=== PATIENT | male | born 1960 | race Caucasian/White ===

== ENCOUNTER 2017-03-28 17:54 | Emergency (ER) | payer SELFPAY ==
[~2017-03-28 17:54] MED LIST: COLACE100 MG PO; FLO4 PO; LEVAQUIN750 MG PO; MOTRIN800 MG PO; NAPROXEN500 MG PO; NOR10T PO; NORCO1 TA2; NORCO1 TA2 PO; OMEPRAZOLE DR20 M1 PO; PRILOSEC20 MG PO
[2017-03-28 19:21] VITALS: BP 130/87
== END 2017-03-28 19:22 | disposition home or self-care (01) ==
LOC: ED 17:54
DX: M54.5 Low back pain (principal); R10.2 Pelvic and perineal pain; I10 Essential (primary) hypertension

== ENCOUNTER 2017-04-06 18:58 | Inpatient (IN) | payer OTHER ==
[~2017-04-06] VITALS: Ht 167.6 cm; Wt 99.0 kg
[2017-04-06 19:43] LABS: BASOPHIL % 0.5 % (0-2); PLATELET COUNT 178 x10^3mcL (130-400); RED CELL DISTRIBUTION WIDTH 12.9 % (11.5-14.5)
[2017-04-06 19:48] LABS: CALCIUM 8.1 mg/dL (8.5-10.1); CARBON DIOXIDE 27.9 mmol/L (21-32); CHLORIDE SERUM 105 mmol/L (98-107); CREATININE SERUM 1.1 mg/dL (0.7-1.3); GFR1 > 60 mL/min; GLUCOSE SERUM 135 mg/dL (74-106); POTASSIUM SERUM 3.8 mmol/L (3.5-5.1); SODIUM SERUM 141 mmol/L (136-145)
[2017-04-06 19:53] LABS: ALKALINE PHOSPHATASE 97 U/L (46-116); ALT/SGPT 43 U/L (16-63); AST/SGOT 23 U/L (15-37); BILIRUBIN TOTAL 0.72 mg/dL (0.20-1.00); MAGNESIUM 1.8 mg/dL (1.8-2.4); TOTAL PROTEIN, SERUM 6.8 g/dL (6.4-8.2)
[2017-04-06 19:56] LABS: ALBUMIN 3.2 g/dL (3.4-5.0)
[2017-04-06 21:15] LABS: PHOSPHOROUS 3.2 mg/dL (2.5-4.9)
[2017-04-06 21:22] LABS: T3 TOTAL 1.15 ng/mL
[2017-04-06 21:24] LABS: FREE T4 0.91 ng/dL (0.76-1.46); T4(THYROXINE) 5.7 ug/dL (4.7-13.3)
[2017-04-07 02:03] VITALS: BP 108/68
[2017-04-07 05:14] LABS: CHLORIDE SERUM 107 mmol/L (98-107); GFR1 > 60 mL/min; GLUCOSE SERUM 116 mg/dL (74-106); MAGNESIUM 1.8 mg/dL (1.8-2.4); PHOSPHOROUS 3.1 mg/dL (2.5-4.9); POTASSIUM SERUM 3.9 mmol/L (3.5-5.1); SODIUM SERUM 143 mmol/L (136-145)
[2017-04-07 06:01] VITALS: BP 124/81
[2017-04-07 08:29] VITALS: Ht 167.6 cm; Wt 99.0 kg
[2017-04-07 09:42] VITALS: BP 137/87
[2017-04-07 15:54] LABS: microscopic required? NO
[2017-04-07 16:03] LABS: urine erythrocyte NEGATIVE (NEGATIVE)
[2017-04-07 16:29] LABS: AMPHETAMINE QUAL UR NONE DETECTED (NEG <=1000)
[2017-04-07 17:57] VITALS: BP 180/100
[2017-04-07 20:19] VITALS: BP 164/108
[2017-04-07 22:27] VITALS: BP 118/68
[2017-04-08 06:12] VITALS: BP 142/95
[2017-04-08 07:50] VITALS: BP 142/86
[2017-04-08] MEDS ORDERED: METHOCARBAMOL500 MG PO (08:36)
[2017-04-08] MEDS ORDERED: NOR10T PO (08:37)
[2017-04-08] MEDS ORDERED: THI100 PO (08:38)
[2017-04-08] MEDS ORDERED: ATI1 PO (08:38)
[2017-04-08] MEDS ORDERED: FOL1 PO (08:38)
[2017-04-08] MEDS ORDERED: THERA TABS1 TAB PO (08:39)
[2017-04-08 14:05] VITALS: BP 156/88
[2017-04-08] MEDS ORDERED: SEROQUEL100 MG PO (16:24)
[2017-04-08 18:30] VITALS: BP 140/77
[2017-04-08 20:48] VITALS: BP 139/85
[2017-04-09 05:27] VITALS: BP 125/78
[2017-04-09 09:57] VITALS: BP 136/83
== END 2017-04-09 10:20 | disposition left against medical advice (07) | DRG 206 ==
LOC: ED 18:58 → DU 04-07 00:05
PROVIDERS: Emergency Medicine; ADMIT Family Medicine
DX: M94.0 Chondrocostal junction syndrome [Tietze] (principal); E44.0 Moderate protein-calorie malnutrition; I10 Essential (primary) hypertension; F41.9 Anxiety disorder, unspecified; F32.9 Major depressive disorder, single episode, unspecified; R73.03 Prediabetes; N40.0 Benign prostatic hyperplasia without lower urinary tract symptoms; E78.5 Hyperlipidemia, unspecified; E78.2 Mixed hyperlipidemia; F10.10 Alcohol abuse, uncomplicated; Y90.9 Presence of alcohol in blood, level not specified; Z68.35 Body mass index [BMI] 35.0-35.9, adult; Z84.1 Family history of disorders of kidney and ureter; Z95.810 Presence of automatic (implantable) cardiac defibrillator; Z83.3 Family history of diabetes mellitus; Z87.891 Personal history of nicotine dependence; M54.9 Dorsalgia, unspecified; G89.29 Other chronic pain; E66.9 Obesity, unspecified
CPT/HCPCS: 82962; 83880; 84439; G0480; J1885; J2060; J2270; J2405; J7030; J8597; Q0092

== ENCOUNTER 2017-08-29 14:24 | Emergency (ER) | payer OTHER ==
[~2017-08-29] VITALS: Ht 172.7 cm; Wt 103.9 kg
[~2017-08-29 14:24] MED LIST changes: +ATI1 PO; +FOL1 PO; +METHOCARBAMOL500 MG PO; +SEROQUEL100 MG PO; +THERA TABS1 TAB PO; +THI100 PO
[2017-08-29 14:29] VITALS: BP 140/72
== END 2017-08-29 15:59 | disposition home or self-care (01) ==
LOC: ED 14:24
DX: R50.9 Fever, unspecified (principal); M79.1 Myalgia; I10 Essential (primary) hypertension; Z86.79 Personal history of other diseases of the circulatory system; Z95.0 Presence of cardiac pacemaker
CPT/HCPCS: J1885; Q0162

== ENCOUNTER 2017-09-21 08:15 | Inpatient (IN) | payer OTHER ==
[~2017-09-21] VITALS: Ht 167.6 cm; Wt 100.8 kg
--- NOTE | 2017-09-21 08:37 | NUR ---
AWAKE ALERT ORIENTED, STATED HAS BEEN HAVING ABDOMINAL PAIN WITH NAUSEA AND VOMITING SINCE ONE WEEK,
--- NOTE | 2017-09-21 08:43 | NUR ---
IV ESTABLISHED, MEDICATED ORDERD
[2017-09-21 08:54] LABS: BASOPHIL % 0.5 % (0-2); PLATELET COUNT 246 x10^3mcL (130-400); RED CELL DISTRIBUTION WIDTH 12.6 % (11.5-14.5)
--- NOTE | 2017-09-21 09:08 | NUR ---
BACK FROM CT AND XRAY CHEST,FEELS BETTER
[2017-09-21 09:27] LABS: CALCIUM 10.1 mg/dL (8.5-10.1); CARBON DIOXIDE 28.1 mmol/L (21-32); CHLORIDE SERUM 103 mmol/L (98-107); CREATININE SERUM 1.2 mg/dL (0.7-1.3); GFR1 > 60 mL/min; GLUCOSE SERUM 115 mg/dL (74-106); POTASSIUM SERUM 3.4 mmol/L (3.5-5.1); SODIUM SERUM 140 mmol/L (136-145)
[2017-09-21 09:32] LABS: ALKALINE PHOSPHATASE 169 U/L (46-116); ALT/SGPT 96 U/L (16-63); AST/SGOT 66 U/L (15-37); BILIRUBIN TOTAL 0.6 mg/dL (0.20-1.00); LIPASE 118 IU/L (73-393); TOTAL PROTEIN, SERUM 7.6 g/dL (6.4-8.2)
[2017-09-21 09:47] LABS: ALBUMIN 3.1 g/dL (3.4-5.0)
[2017-09-21 10:44] VITALS: BP 139/87
[2017-09-21 11:14] VITALS: BP 139/87
--- NOTE | 2017-09-21 11:31 | NUR ---
RECIEVED PT FROM ED. PT IS AWAKE, ALERT, AND ORIENTED. HAS NO COMPLAINT OF SOB, OR DIZZINESS. PT CURRENTLY HAS NO COMPLAINT OF ABDOMINAL PAIN. ACTIVE BOWEL SOUNDS NOTED. NON DISTENDED ABDOMEN NOTED. CLEAR BHARATI LUNG FIELD, SYMMETRICAL CHEST EXPANSION AND UNLABORED. SKIN INTACT. SIDE RAILS UP, CALL LIGHT WITHIN REACH, WILL CONTINUE TO MONITOR
[2017-09-21 12:17] LABS: MAGNESIUM 1.7 mg/dL (1.8-2.4); PHOSPHOROUS 4.3 mg/dL (2.5-4.9)
[2017-09-21 12:22] LABS: CHOLESTEROL/HDL RATIO 8.1
[2017-09-21 12:28] LABS: FREE T4 0.94 ng/dL (0.76-1.46); FREE THYROXINE INDEX 2.9 ug/dL (1.4-4.5); T4(THYROXINE) 8.7 ug/dL (4.7-13.3)
--- NOTE | 2017-09-21 13:00 | NUR ---
PT ABLE TO TOLERATE LUNCH
[2017-09-21 13:24] LABS: T3 TOTAL 1.24 ng/mL
--- NOTE | 2017-09-21 14:00 | NUR ---
PT ON BED, AWAKE, ALERT, AND ORIENTED. IV ANTIBIOTIC HANGED AND INFUSING WELL NO REACTION NOTED
[2017-09-21 14:05] VITALS: BP 136/87
[2017-09-21 14:06] VITALS: BP 107/57
--- NOTE | 2017-09-21 17:25 | NUR ---
PT ON BED, AWAKE, ALERT, AND ORIENTED. HAS NO COMPLAINT OF PAIN, SOB, OR DIZZINESS. RESPONDS WELL TO QUESTION AND ANSWER. SIDE RAILS UP, CALL LIGHT WITHIN REACH, WILL CONTINUE TO MONITOR
[2017-09-21 17:29] VITALS: BP 117/74
--- NOTE | 2017-09-21 19:46 | NUR ---
PT RECEIVED FROM AM NURSE, IN BED, A/O X4, VERBALLY RESPONSIVE. LUNGS CLEAR, EVEN, UNLABORED. ON TELE 44, NSR WITH HR IN 60S. NO C/O CHEST PAIN. BOWEL SOUNDS ACTIVE IN ALL QUADRANTS. IV TO LAC, NS AT 100 ML/HR. NO LEAKING/INFILTRATION NOTED. MADE PT COMFORTABLE, CALL LIGHT IN REACH, BED IN LOWEST POSITION, WILL CONTINUE TO MONITOR.
[2017-09-21 21:50] VITALS: BP 106/61
--- NOTE | 2017-09-21 22:01 | NUR ---
POTASSIUM 3.4, DR. LOPEZ MADE AWARE
--- NOTE | 2017-09-22 03:27 | NUR ---
PT ASLEEP IN BED, EASILY AROUSABLE, A/O X4. NO SIGNS OF ACUTE DISTRESS. IV TO LFA INTACT, PATENT, NO LEAKING. WILL CONTINUE TO MONITOR.
--- NOTE | 2017-09-22 05:19 | NUR ---
PT ASLEEP IN BED, IN NO ACUTE DISTRESS AT THIS TIME. CALL LIGHT IN REACH, WILL CONTINUE TO MONITOR.
[2017-09-22 06:07] LABS: microscopic required? NO
[2017-09-22 06:26] LABS: urine erythrocyte NEGATIVE (NEGATIVE)
[2017-09-22 06:33] LABS: AMPHETAMINE QUAL UR NONE DETECTED (NEG <=1000)
[2017-09-22 06:50] VITALS: BP 103/59
[2017-09-22 07:59] LABS: BASOPHIL % 0.6 % (0-2); PLATELET COUNT 210 x10^3mcL (130-400); RED CELL DISTRIBUTION WIDTH 12.8 % (11.5-14.5)
[2017-09-22 08:22] LABS: CALCIUM 9.3 mg/dL (8.5-10.1); CARBON DIOXIDE 27.3 mmol/L (21-32); CHLORIDE SERUM 104 mmol/L (98-107); GFR1 > 60 mL/min; GLUCOSE SERUM 103 mg/dL (74-106); MAGNESIUM 1.8 mg/dL (1.8-2.4); PHOSPHOROUS 4.3 mg/dL (2.5-4.9); POTASSIUM SERUM 3.6 mmol/L (3.5-5.1); SODIUM SERUM 141 mmol/L (136-145)
--- NOTE | 2017-09-22 09:00 | NUR ---
RECIEVED PT FROM NOC. PT IS AWAKE, ALERT, AND ORIENTED. HAS NO COMPLAINT OF SOB, OR DIZZINESS. PT CURRENTLY HAS NO COMPLAINT OF ABDOMINAL PAIN. ACTIVE BOWEL SOUNDS NOTED. NON DISTENDED ABDOMEN NOTED. CLEAR BHARATI LUNG FIELD, SYMMETRICAL CHEST EXPANSION AND UNLABORED. SKIN INTACT. SIDE RAILS UP, CALL LIGHT WITHIN REACH, WILL CONTINUE TO MONITOR
[2017-09-22 09:35] VITALS: BP 116/72
--- NOTE | 2017-09-22 11:26 | NUR ---
PT'S ACCUCHECK SHOWED 113. NO COVERAGE NEEDED
--- NOTE | 2017-09-22 13:52 | NUR ---
PT ON BED, ASLEEP
--- NOTE | 2017-09-22 17:00 | NUR ---
PT'S ACCUCHECK SHOWED 92. NO COVERAGE NEEDED
--- NOTE | 2017-09-22 17:21 | NUR ---
PT ON BED, ASLEEP. WILL CONTINUE TO MONITOR
[2017-09-22 17:26] VITALS: BP 117/78
--- NOTE | 2017-09-22 20:36 | NUR ---
PT RECEIVED FROM AM NURSE. IN BED, A/O X4, VERBALLY RESPONSIVE. LUNGS CLEAR, EVEN, UNLABORED. BOWEL SOUNDS ACTIVE, NO DISTENTION/TENDERNESS NOTED. SKIN INTACT. IV TO LFA, PATENT, NO LEAKING, DRESSING INTACT. RUNNING NS WITH 20 GRECIA KCL AT 100 ML/H. PT TOLERATING WELL. NO ACUTE DISTRESS NOTED AT THIS TIME, BED IN LOWEST POSITION, CALL LIGHT IN REACH, WILL CONTINUE TO MONITOR.
[2017-09-22 21:19] VITALS: BP 138/83
--- NOTE | 2017-09-23 00:19 | NUR ---
PT ASLEEP AT THIS TIME, NO ACUTE DISTRESS NOTED. IV INFUSING WELL TO LFA. BED IN LOWEST POSITION, CALL LIGHT IN REACH, WILL CONTINUE TO MONITOR.
--- NOTE | 2017-09-23 01:30 | NUR ---
D/C IV TO LAC D/T LEAKING. NEW IV TO LH, 24G, PATENT, RUNNING IVF AT 100 ML/H. PT TOLERATING WELL. WILL CONTINUE TO MONITOR.
--- NOTE | 2017-09-23 03:30 | NUR ---
PT ASLEEP IN BED, NO ACUTE DISTRESS NOTED. WILL CONTINUE TO MONITOR
--- NOTE | 2017-09-23 05:26 | NUR ---
BLOOD GLUCOSE 105, NO COVERAGE. IN NO ACUTE DISTRESS AT THIS TIME, WILL CONTINUE TO MONITOR.
[2017-09-23 05:53] VITALS: BP 129/88
--- NOTE | 2017-09-23 06:16 | NUR ---
PT LAYING IN BED, ASLEEP. NO ACUTE DISTRESS NOTED AT THIS TIME. IV TO LH INFUSING WELL, NO LEAKING/INFILTRATION NOTED. WILL ENDORSE CARE TO AM NURSE.
[2017-09-23 06:29] LABS: BASOPHIL % 0.6 % (0-2); PLATELET COUNT 219 x10^3mcL (130-400); RED CELL DISTRIBUTION WIDTH 12.8 % (11.5-14.5)
[2017-09-23 09:50] VITALS: BP 133/82
[2017-09-23] MEDS ORDERED: AMOXICILLIN/CLA1 TA6 PO (13:43)
[2017-09-23] MEDS ORDERED: LAC PO (13:45)
[2017-09-23] MEDS ORDERED: FLA500 PO (13:45)
[2017-09-23 14:01] VITALS: BP 133/82
[2017-09-23] MEDS ORDERED: SEROQUEL100 MG PO (14:13)
[2017-09-23] MEDS ORDERED: FLO4 PO (14:13)
[2017-09-23] MEDS ORDERED: PRILOSEC OTC20 M1 PO (14:13)
== END 2017-09-23 14:28 | disposition home or self-care (01) | DRG 137 ==
LOC: ED 08:15 → DU 09:41 → MU 09:41 → DU 10:19 → MU 09-22 11:09
PROVIDERS: Emergency Medicine; Student in an Organized Health Care Education/Training Program; ADMIT Family Medicine
DX: J69.0 Pneumonitis due to inhalation of food and vomit (principal); E44.0 Moderate protein-calorie malnutrition; I08.1 Rheumatic disorders of both mitral and tricuspid valves; E66.2 Morbid (severe) obesity with alveolar hypoventilation; F17.210 Nicotine dependence, cigarettes, uncomplicated; F31.9 Bipolar disorder, unspecified; R00.2 Palpitations; K57.90 Diverticulosis of intestine, part unspecified, without perforation or abscess without bleeding; E87.6 Hypokalemia; R74.0 Nonspecific elevation of levels of transaminase and lactic acid dehydrogenase [LDH]; J44.1 Chronic obstructive pulmonary disease with (acute) exacerbation; F17.200 Nicotine dependence, unspecified, uncomplicated; F41.9 Anxiety disorder, unspecified; N40.0 Benign prostatic hyperplasia without lower urinary tract symptoms; Z95.0 Presence of cardiac pacemaker; Z79.899 Other long term (current) drug therapy; Z83.3 Family history of diabetes mellitus; Z84.1 Family history of disorders of kidney and ureter; Z68.35 Body mass index [BMI] 35.0-35.9, adult; Z71.6 Tobacco abuse counseling
CPT/HCPCS: 36600; 83880; 84439; 99406; G0480; J0696; J2405; J3010; J3475; J3480; J3490; J7030

== ENCOUNTER 2017-10-21 00:37 | Emergency (ER) | payer OTHER ==
[~2017-10-21] VITALS: Ht 167.6 cm; Wt 113.4 kg
[~2017-10-21 00:37] MED LIST changes: +AMOXICILLIN/CLA1 TA6 PO; +FLA500 PO; +LAC PO; +PRILOSEC OTC20 M1 PO
[2017-10-21 00:43] VITALS: Ht 167.6 cm; Wt 113.4 kg
[2017-10-21 04:20] LABS: BASOPHIL % 0.8 % (0-2); PLATELET COUNT 186 x10^3mcL (130-400); RED CELL DISTRIBUTION WIDTH 13.2 % (11.5-14.5)
[2017-10-21 04:26] LABS: CALCIUM 8.3 mg/dL (8.5-10.1); CARBON DIOXIDE 27.2 mmol/L (21-32); CHLORIDE SERUM 106 mmol/L (98-107); CREATININE SERUM 0.9 mg/dL (0.7-1.3); GFR1 > 60 mL/min; GLUCOSE SERUM 139 mg/dL (74-106); POTASSIUM SERUM 3.8 mmol/L (3.5-5.1); SODIUM SERUM 141 mmol/L (136-145)
[2017-10-21 04:30] LABS: ALBUMIN 3.2 g/dL (3.4-5.0); ALKALINE PHOSPHATASE 116 U/L (46-116); ALT/SGPT 68 U/L (16-63); AST/SGOT 41 U/L (15-37); BILIRUBIN TOTAL 0.4 mg/dL (0.20-1.00); TOTAL PROTEIN, SERUM 7.5 g/dL (6.4-8.2)
[2017-10-21 15:24] VITALS: BP 137/74
== END 2017-10-21 15:24 | disposition home or self-care (01) ==
LOC: ED 00:37
PROVIDERS: Emergency Medicine
DX: J98.01 Acute bronchospasm (principal); M54.6 Pain in thoracic spine; I10 Essential (primary) hypertension; Z86.79 Personal history of other diseases of the circulatory system; Z95.0 Presence of cardiac pacemaker
CPT/HCPCS: 83880; J1956; J2930; J7620; J7626

== ENCOUNTER 2018-04-05 14:48 | Emergency (ER) | payer OTHER ==
[~2018-04-05] VITALS: Ht 170.2 cm; Wt 102.0 kg
[2018-04-05 15:00] VITALS: BP 113/60; Ht 170.2 cm; Wt 102.0 kg
== END 2018-04-05 16:15 | disposition home or self-care (01) ==
LOC: ED 14:48
DX: G89.4 Chronic pain syndrome (principal); I10 Essential (primary) hypertension; Z95.0 Presence of cardiac pacemaker

== ENCOUNTER 2020-04-25 02:59 | Emergency (ER) | payer OTHER ==
[~2020-04-25] VITALS: Ht 170.2 cm; Wt 90.7 kg
[2020-04-25 03:12] VITALS: Ht 170.2 cm; Wt 90.7 kg
[2020-04-25 04:03] LABS: BASOPHIL % 0.7 % (0-2); PLATELET COUNT 234 x10^3mcL (130-400); RED CELL DISTRIBUTION WIDTH 11.8 % (11.5-14.5)
[2020-04-25 04:24] LABS: CALCIUM 8.1 mg/dL (8.5-10.1); CARBON DIOXIDE 26.4 mmol/L (21-32); CHLORIDE SERUM 101 mmol/L (98-107); CREATININE SERUM 1.1 mg/dL (0.7-1.3); GFR1 > 60 mL/min; GLUCOSE SERUM 134 mg/dL (74-106); POTASSIUM SERUM 3.5 mmol/L (3.5-5.1); SODIUM SERUM 138 mmol/L (136-145)
[2020-04-25 04:29] LABS: ALKALINE PHOSPHATASE 112 U/L (46-116); ALT/SGPT 36 U/L (16-63); AST/SGOT 24 U/L (15-37); BILIRUBIN TOTAL 0.87 mg/dL (0.20-1.00); TOTAL PROTEIN, SERUM 6.5 g/dL (6.4-8.2)
[2020-04-25 04:30] LABS: ALBUMIN 2.8 g/dL (3.4-5.0)
[2020-04-25 07:07] VITALS: BP 111/75
== END 2020-04-25 07:07 | disposition home or self-care (01) ==
LOC: ED 02:59
PROVIDERS: Emergency Medicine
DX: S39.012A Strain of muscle, fascia and tendon of lower back, initial encounter (principal); S29.012A Strain of muscle and tendon of back wall of thorax, initial encounter; F17.210 Nicotine dependence, cigarettes, uncomplicated; I10 Essential (primary) hypertension; X58.XXXA Exposure to other specified factors, initial encounter; Y93.89 Activity, other specified; Y92.89 Other specified places as the place of occurrence of the external cause; Y99.8 Other external cause status
CPT/HCPCS: 36415; J1885; Q0092

== ENCOUNTER 2020-04-25 23:38 | Emergency (ER) | payer OTHER | END 2020-04-26 00:06 | disposition other institution (70) | LOC: ED 23:38 | DX: Z02.89 Encounter for other administrative examinations (principal) ==

== ENCOUNTER 2020-04-25 23:38 | Emergency (ER) | payer OTHER ==
[~2020-04-25] VITALS: Ht 170.2 cm; Wt 122.5 kg
[2020-04-25 23:43] VITALS: Ht 170.2 cm; Wt 122.5 kg
[2020-04-26 00:05] VITALS: BP 140/92
== END 2020-04-26 00:06 | disposition other institution (70) ==
LOC: ED 23:38
DX: R00.0 Tachycardia, unspecified (principal); F15.10 Other stimulant abuse, uncomplicated; I10 Essential (primary) hypertension; Z95.0 Presence of cardiac pacemaker

== ENCOUNTER 2020-07-01 21:09 | Emergency (ER) | payer OTHER ==
[~2020-07-01] VITALS: Ht 167.6 cm; Wt 101.4 kg
[2020-07-01 21:29] VITALS: BP 165/99; Ht 167.6 cm; Wt 101.4 kg
== END 2020-07-01 23:43 | disposition left against medical advice (07) ==
LOC: ED 21:09
DX: F10.239 Alcohol dependence with withdrawal, unspecified (principal); F41.9 Anxiety disorder, unspecified; I10 Essential (primary) hypertension